=== PATIENT | female | born 1990 | race Caucasian/White ===

== ENCOUNTER 2021-02-26 15:02 | Emergency (ER) | payer OTHER, SELFPAY ==
[2021-02-26 15:08] VITALS: BP 114/74; PULSE 81; RESP 18; TEMP 37.7; O2SAT 100
[2021-02-26 15:13] VITALS: BP 114/74; PULSE 81; RESP 18; TEMP 37.7; O2SAT 100
--- NOTE | 2021-02-26 15:31 | ED.URI ---
HPI - URI/Sore Throat General Chief Complaint: Upper Respiratory Infection Stated Complaint: meds not working Time Seen by Provider: 02/26/21 15:20 Source: patient and RN notes reviewed History of Present Illness HPI Narrative: Patient is a 31-year-old female who presents the urgent care with complaints of a cough and intermittent stuffiness for the last month. Patient states that 3 weeks ago she was seen at [facility] and give her cough medication and naproxen. Patient states that she is unsure if she had COVID at that time because they did not test her. Patient reports of intermittent shortness of breath with exertion, nonproductive cough. Denies of any chest pain or wheezing. Denies any fever, chills, nausea or vomiting. No other acute complaints. No acute distress noted. Patient aware of the plan of care. Some parts of this dictation were generated by voice recognition software and may contain typographical and/or grammatical inaccuracies. Related Data Allergies Allergy/AdvReac Type Severity Reaction Status Date / Time No Known Allergies Allergy Verified 02/26/21 15:13 Review of Systems Review of Systems: CONSTITUTIONAL: Denies fever, chills, or sweats. EYES: Denies visual changes, redness, or discharge. ENT: Denies rhinorrhea, sore throat, or otalgia. Reports of nasal congestion CARDIOVASCULAR: Denies chest pain, palpitations, or edema. RESPIRATORY: Reports a nonproductive cough with intermittent dyspnea GASTROINTESTINAL: Denies abdominal pain, nausea, vomiting, or diarrhea. GENITOURINARY: Denies dysuria or hematuria. SKIN: Denies rash or itching. MUSCULOSKELETAL: Denies back pain, joint pain, or myalgia. NEUROLOGIC: Denies headache, numbness, or weakness. All other systems reviewed are negative, except as documented in HPI. PMFSH Comments At the time of my signature, I reviewed and agree with the nursing past medical, surgical, social, and family history. There is no relevant family history pertinent to the patient complaint. Exam Narrative: GENERAL: This is a well-nourished, well-developed patient, in no apparent distress. HEAD: normocephalic, atraumatic. EYES: PERRL. Sclera clear/white. Vision is grossly intact. EARS: External ears normal, auditory canals clear and without drainage, TMs normal without perforation. Hearing grossly intact. NOSE: External nose normal with no obvious nasal discharge, nares without redness, no rhinorrhea. THROAT: Mucous membranes moist, posterior pharynx clear. Moderate postnasal drainage NECK: Neck supple CARDIOVASCULAR: Regular rate and rhythm without murmurs, gallops, or rubs. RESPIRATORY: Mild nonproductive cough on exam. Clear to auscultation. Breath sounds equal bilaterally. No wheezes, rales, or rhonchi. SKIN: warm, intact with no suspicious lesions or rash, good texture and turgor. NEURO: awake, alert, and oriented to person, place and time. There were no obvious focal neurologic abnormalities. EXTREMITIES: No clubbing, cyanosis, or edema. Course Course Level of Care: Express Care Visit Vital Signs Vital signs: Vital Signs Temperature 99.8 F H 02/26/21 15:08 Pulse Rate 81 02/26/21 15:08 Respiratory Rate 18 02/26/21 15:08 Blood Pressure 114/74 02/26/21 15:08 Pulse Oximetry 100 02/26/21 15:08 Temperature 99.8 F H 02/26/21 15:13 Pulse Rate 81 02/26/21 15:13 Respiratory Rate 18 02/26/21 15:13 Blood Pressure 114/74 02/26/21 15:13 Pulse Oximetry 100 02/26/21 15:13 Reviewed MDM - URI/Sore Throat MDM Narrative Medical decision making narrative: Advised patient to use the inhaler as needed for shortness of breath or wheezing and always take prior to bedtime. Complete the oral steroid regimen as prescribed. Be sure to eat and drink with the medication. Use the Tessalon Perles as needed for nonproductive cough. May continue naproxen or [id number] pain medication as needed. Follow-up with your PCP within 2 to 5 days or for worsenin
== END 2021-02-26 15:43 | disposition home or self-care (01) ==
PROVIDERS: Emergency Provider Nurse Practitioner Family
DX: R05.9 Cough, unspecified (principal); E05.90 Thyrotoxicosis, unspecified without thyrotoxic crisis or storm
CPT/HCPCS: 99213; G0463